=== PATIENT | female | born 1980 | race Caucasian/White ===

== ENCOUNTER → 2024-04-04 18:11 | Outpatient (REF) | payer BC, SELFPAY | LOC: WDC 18:11 | PROVIDERS: ATTENDING PHYSICIAN Nurse Practitioner Adult Health; FAMILY PHYSICIAN Family Medicine | DX: Z12.31 Encounter for screening mammogram for malignant neoplasm of breast (principal) | CPT/HCPCS: 77063; 77067 ==

== ENCOUNTER → 2025-02-21 13:04 | Outpatient (REF) | payer OTHER, SELFPAY | LOC: RAD 13:04 | PROVIDERS: ATTENDING PHYSICIAN Nurse Practitioner Adult Health; FAMILY PHYSICIAN Family Medicine | DX: E04.1 Nontoxic single thyroid nodule (principal) | CPT/HCPCS: 76536 ==

== ENCOUNTER → 2025-04-09 09:30 | Outpatient (REF) | payer OTHER, SELFPAY ==
[2025-04-09 10:06] VITALS: BP 143/90; BP_SYST 83
== END ==
LOC: RADI 09:30
PROVIDERS: ATTENDING PHYSICIAN Nurse Practitioner Family
DX: E04.2 Nontoxic multinodular goiter (principal)
CPT/HCPCS: 10005; 10006; 88173